=== PATIENT | female | born 1945 | race Caucasian/White ===

== ENCOUNTER 2017-06-30 07:30 | Day surgery (SDC) | payer MEDICARE ==
[~2017-06-30] VITALS: Ht 165.1 cm; Wt 68.0 kg
[~2017-06-30 07:30] MED LIST: ADULT LOW DOSE81 MG PO; CALCIUM 600-VI1 EAC2 PO; HYDROCHLOROTH12.5 M1 PO; K-TAB ER20 MEQ; MELATONIN10 M2 PO; OMEPRAZOLE20 MG PO; ZESTRIL40 MG PO; ZOCOR40 MG PO
[2017-06-30] MEDS ORDERED: IBUPROFEN600 MG PO (16:37)
[2017-06-30] MEDS ORDERED: OXYCODON-ACETA1 EAC2 PO (16:37)
[2017-06-30] MEDS ORDERED: MAPAP325 MG PO (16:37)
--- NOTE | 2017-07-03 09:32 | OR ---
[facility] [address], [place] [address] Signed DATE OF OPERATION: 06/30/2017 SURGEON: Milan Moreno MD PREOPERATIVE DIAGNOSIS: Right medial upper infiltrating ductal breast carcinoma ER WA positive. POSTOPERATIVE DIAGNOSES: 1. Right medial upper infiltrating ductal breast carcinoma ER WA positive. 2. Hawkins lymph nodes of right axilla negative by frozen pathology (four sentinel lymph nodes resected). PROCEDURES: 1. Injection of methylene blue dye for sentinel lymph node identification. 2. Right deep axillary sentinel lymph node biopsy x4. 3. Right needle-localized partial mastectomy (2 o'clock position upper medial aspect). ANESTHESIA: General LMA; Milan Schrader CRNA INDICATION: This 71-year-old, white woman is a patient of ZAHRAA Medeiros, and underwent screening mammogram where she was found to have an abnormality of the right breast. This was biopsied by Dr. Viky Marti with image-guided biopsy technique confirming infiltrating ductal carcinoma. The lesion was very subtle on mammogram. There was no palpable mass on examination. She did have a fair amount of bruising in the region of the biopsy, but does not have a long-standing history of easy bleeding or anything to suggest coagulopathy in fact. Her options of management have been outlined to her. Given the nature of the lesion being infiltrating ductal carcinoma, ER WA positive, HER-2/joel negative, conservative breast management has been considered and is accepted by the patient. Our current plan is for needle-localized excisional resection of the affected breast in the upper medial aspect on the right side as well as sentinel lymph node biopsy. If one or more sentinel lymph nodes are positive for metastatic disease, completion axillary dissection will be undertaken. She is fully anticipating right breast radiation therapy following operation no matter what the sentinel lymph node status is. She understands the risks of bleeding, infection, cosmetic deformity, need for additional treatment, failure of frozen pathology to identify malignancy, need for additional resection if positive margin is noted on the resected specimen, and other unforeseen complications related to surgery; and wishes to proceed. Electronically Signed By: MILAN MORENO MD 07/03/17 0932 PATIENT NAME: JESSIAC SALINAS OPERATIVE REPORT DATE OF : 47 PHYSICIAN: MILAN MORENO MD REPORT #: [id number] REPORT IS CONFIDENTIAL AND NOT TO BE RELEASED WITHOUT AUTHORIZATION [facility] [address] [place] [id number] Signed FINDINGS: Good localization was noted by the wire, which emanated from the superomedial aspect of the breast. The lesion itself was in the area of the areolar margin in the 2 o'clock position. Complete resection of this was undertaken and specimen radiograph confirmed that the lesion was in the central portion of the resected specimen with the associated identifying clip. As regard to the sentinel lymph node biopsies, four sentinel lymph nodes were identified based on radionuclide activity; one node, which had a fair amount of methylene blue dye; the others, which did not have any that was perceptible; all were noted to be negative on frozen pathology. DESCRIPTION OF PROCEDURE: The patient was brought to the operating room after being received from radiology suite and placed in the supine position and given a general anesthetic by LMA technique. Preoperative antibiotic Ancef was given. Sequential compression device stockings were used and heparin subcutaneously was administered. The right breast and upper axilla and arm were prepared with a Betadine spray solution after injection in the 10 o'clock position of the areola with methylene blue dye 1 mL in total diluted 50% with sterile saline in the subepidermal layer. Good arborization of lymphatics was noted. After sterile preparation and draping, the C-Trak radiation probe was guided to the right axilla and that area with active uptake most dominantly was chosen as site of incision, which was in the anterior aspect of the axilla. A transverse incision was made using blunt dissection, and dissection was carried through the subcutaneous tissue and breast parenchyma itself with a hemostat. There were no blue lymphatics visible at first and therefore additional use of the probe was undertaken. An area with high uptake was gently grasped with Allis clamp and resected and withdrawn and found to have avid uptake of radionuclide, but no evidence of blue dye. Dissection revealed two nodes within the small fatty tissue, one of which was an avid uptake lymph node; the other, which was a lymph node, but with no uptake whatsoever. Additional dissection was undertaken ultimately delivering three additional nodes with avid uptake of radionuclide, one of which had avid uptake of dye as well. Subsequently, all four sentinel lymph nodes were identified as negative on frozen pathology. The wound was packed after removal of the sentinel lymph nodes, anticipating the results of the study. Plain gauze was used to pack the axilla at that time. The wire was emanating from the medial aspect of the breast in the superior portion on Electronically Signed By: MILAN MORENO MD 07/03/17 0932 PATIENT NAME: JESSICA SALINAS OPERATIVE REPORT DATE OF : 47 PHYSICIAN: MILAN MORENO MD REPORT #: [id number] REPORT IS CONFIDENTIAL AND NOT TO BE RELEASED WITHOUT AUTHORIZATION [place] [phone] Signed the right side. The areolar margin was marked, although it was rather faint, and a curvilinear incision was made on the areolar margin. Dissection was carried through the dermis with electrocautery; and using blunt dissection ultimately, the wire, which emanated superior to the periareolar incision, was delivered into the wound. The parenchyma of the breast was grasped with Allis clamps and carefully resected using electrocautery. Extreme care was taken to provide a wide enough margin to include the target completely. Once resected, specimen radiograph was performed, and subsequently confirmed to have the localizing clip and needle in the central portion of the specimen resected and the lesion to be well resected with radiographically negative margin. The wound cavity was hemostatic overall. Minimal electrocautery was used after irrigation with sterile water for its lytic effects on cells and tumor cells. Some Zarina powdered hemostatic agent was applied to the cavity and the parenchyma was reapproximated with interrupted 2-0 Vicryl and a running subcuticular 3-0 Vicryl was used for the skin. By this point, the frozen pathology of the sentinel lymph nodes was returned showing all four sentinel lymph nodes to have no evidence of metastatic disease. Examination of the axilla showed no sign of bleeding of any sort. The remaining Zarina was applied to the depths of the wound, and the wound was closed in layers with interrupted 2-0 Vicryl and a running subcuticular 3-0 Vicryl for the skin. Steri-Strips were applied to both sites as were Mepilex silver sponge dressing and OpSite. BLOOD LOSS: Less than 25 mL. COUNTS: Sponge, needle, and instrument count was reported as correct x2. MD KARTHIK Estrella/KAVITA /[id number] cc: Viky Marti MD Electronically Signed By: MILAN MORENO MD 07/03/17 0932 PATIENT NAME: JESSICA SALINAS OPERATIVE REPORT DATE OF : 47 PHYSICIAN: MILAN MORENO MD REPORT #: [id number] REPORT IS CONFIDENTIAL AND NOT TO BE RELEASED WITHOUT AUTHORIZATION [address] Electronically Signed By: MILAN MORENO MD 07/03/17 0932 PATIENT NAME: JESSICA SALINAS OPERATIVE REPORT DATE OF : 47 PHYSICIAN: MILAN MORENO MD REPORT #: [id number] REPORT IS CONFIDENTIAL AND NOT TO BE RELEASED WITHOUT AUTHORIZATION
== END 2017-06-30 21:22 | disposition home or self-care (01) ==
LOC: DS 07:30 → OPS 07:30 → MAM 09:00 → DS 10:15 → MS 19:05 → OPS 21:22
PROVIDERS: Surgery
PROC: 0HBT0ZZ Excision of Right Breast, Open Approach (ICD-10-PCS; principal; 2017-06-30 10:15)
DX: C50.211 Malignant neoplasm of upper-inner quadrant of right female breast (principal); I10 Essential (primary) hypertension; Z88.0 Allergy status to penicillin; Z79.82 Long term (current) use of aspirin; Z79.899 Other long term (current) drug therapy; Z90.49 Acquired absence of other specified parts of digestive tract; Z98.890 Other specified postprocedural states
CPT/HCPCS: 00404; 19281; 76098; 78195; 88307; 88342; A9541; J1100; J1644; J1885; J2250; J2405; J2704; J2765; J3010; J7120

== ENCOUNTER 2018-01-23 14:47 | Emergency (ER) | payer MEDICARE ==
[~2018-01-23] VITALS: Ht 165.1 cm; Wt 70.6 kg
[~2018-01-23 14:47] MED LIST changes: +ANASTROZOLE1 MG PO; +IBUPROFEN600 MG PO; -K-TAB ER20 MEQ; +K-TAB ER20 MEQ PO; +MAPAP325 MG PO; +OXYCODON-ACETA1 EAC2 PO
== END 2018-01-23 14:55 | disposition home or self-care (01) ==
LOC: ED 14:47
DX: M79.89 Other specified soft tissue disorders (principal)

== ENCOUNTER 2020-09-17 17:53 | Emergency (ER) | payer MEDICARE ==
[~2020-09-17] VITALS: Ht 165.1 cm; Wt 68.0 kg
[~2020-09-17 17:53] MED LIST changes: +AMLODIPINE BES2.5 MG PO
[2020-09-17] MEDS ORDERED: EXEMESTANE25 MG PO (18:19)
--- NOTE | 2020-09-17 21:40 | EKG ---
[facility] [facility] [address] [facility] [place] [address] Signed Normal sinus rhythm Left ventricular hypertrophy with repolarization abnormality Abnormal ECG When compared with ECG of 28-JUN-2017 09:43, ST now depressed in Lateral leads T wave inversion now evident in Lateral leads Confirmed by LISA JANSEN MD ([id number]) on 09/17/2020 9:40:05 PM Electronically Signed By: LISA JANSEN MD 09/17/20 2140 PATIENT NAME: BRADJESSICA ANN Electrocardiogram DATE OF : 47 PHYSICIAN: LISA JANSEN MD REPORT #: [id number] REPORT IS CONFIDENTIAL AND NOT TO BE RELEASED WITHOUT AUTHORIZATION
--- NOTE | 2020-09-18 12:45 | EKG ---
[facility] [address] [facility] [place] [address] Signed Normal sinus rhythm Moderate voltage criteria for LVH, may be normal variant Borderline ECG When compared with ECG of 17-SEP-2020 18:01, (Unconfirmed) ST no longer depressed in Lateral leads T wave inversion now evident in Inferior leads T wave inversion no longer evident in Lateral leads Confirmed by LISA JANSEN MD ([id number]) on 09/18/2020 12:45:18 PM Electronically Signed By: LISA JANSEN MD 09/18/20 1245 PATIENT NAME: JESSICA SALINAS SHARYN Electrocardiogram DATE OF : 47 PHYSICIAN: LISA JANSEN MD REPORT #: [id number] REPORT IS CONFIDENTIAL AND NOT TO BE RELEASED WITHOUT AUTHORIZATION
== END 2020-09-17 22:35 | disposition home or self-care (01) ==
LOC: ED 17:53
DX: R07.9 Chest pain, unspecified (principal); R06.00 Dyspnea, unspecified; R79.1 Abnormal coagulation profile; Z20.822 Contact with and (suspected) exposure to COVID-19; E78.00 Pure hypercholesterolemia, unspecified; I10 Essential (primary) hypertension; K21.9 Gastro-esophageal reflux disease without esophagitis; Z85.3 Personal history of malignant neoplasm of breast; Z88.0 Allergy status to penicillin; Z91.040 Latex allergy status; Z79.899 Other long term (current) drug therapy; Z79.82 Long term (current) use of aspirin
CPT/HCPCS: 71045; 71260; 80053; 83735; 83880; 84484; 85025; 93005; 93010; 99285-25; C9803; Q9967; U0003